=== PATIENT | male | born 1975 | race Hispanic/Latino ===

== ENCOUNTER 2016-12-25 08:29 | Inpatient (IN) | payer MEDICAID, OTHER ==
[2016-12-25 08:38] VITALS: BMI 21.7
--- NOTE | 2016-12-25 08:47 | ED PDOC ---
Arrival/HPI - General Chief Complaint: Psychiatric Evaluation Time Seen by Provider: 12/25/16 08:41 Historian: Patient - History of Present Illness Narrative History of Present Illness (Text): 12/25/16 08:38 A 41 year old male, with no significant past medical history, is brought in by EMS and presents to the emergency department for overdose. Per EMS, patient's brother found suicide note in his home from stating patient and his girlfriend, whom is also present in the ER at this time. Brother immediately called 911 afterwards. Patient states his mother made promises to help with moving out of [facility] and to give money but has not done so. Patient injected heroin in attempt of suicide. While seeing patient, he began to cry and is ashamed of what he did to himself. No PMD Symptom Onset: Sudden Symptom Course: Unchanged Associated Symptoms (Text): 12/25/16 09:26 Patient and his girlfriend made a suicide pack last night and they both overdosed on heroin. The girlfriend's brother found a suicide notes and called 911 and the 2 patients were brought to the emergency department. Patient is crying and tearful. Past Medical History - Provider Review Nursing Documentation Reviewed: Yes - Past History Past History: Non-Contributing - Infectious Disease Hx of Infectious Diseases: None - Cardiac Hx Cardiac Disorders: No - Pulmonary Hx Respiratory Disorders: No - Neurological Hx Neurological Disorder: No - HEENT Hx HEENT Disorder: No - Renal Hx Renal Disorder: No - Endocrine/Metabolic Hx Endocrine Disorders: No - Hematological/Oncological Hx Blood Disorders: No - Integumentary Hx Dermatological Disorder: No - Musculoskeletal/Rheumatological Hx Musculoskeletal Disorders: Yes Hx Arthritis: Yes Hx Herniated Disk: Yes - Gastrointestinal Hx Gastrointestinal Disorders: No - Genitourinary/Gynecological Hx Genitourinary Disorders: No Other/Comment: hydrocele - Psychiatric Hx Psychophysiologic Disorder: No Hx Depression: No Hx Emotional Abuse: No Hx Physical Abuse: No Hx Substance Use: Yes - Surgical History Other/Comment: left forearm sx - Anesthesia Hx Anesthesia: Yes Hx Anesthesia Reactions: No Hx Malignant Hyperthermia: No - Suicidal Assessment Feels Threatened In Home Enviroment: No Family/Social History - Physician Review Nursing Documentation Reviewed: Yes Family/Social History: No Known Family HX Smoking Status: Current Some Days Smoker Hx Alcohol Use: Yes Hx Substance Use: Yes Substance used: heroin use 4 months ago Hx Substance Use Treatment: No Allergies/Home Meds Allergies/Adverse Reactions: Allergies No Known Allergies Allergy (Verified 07/15/15 02:25) Home Medications: Home Meds Medication Instructions Recorded Confirmed Oxycodone Hydrochloride [Oxycontin] 30 mg PO TID 09/01/11 07/15/15 Alprazolam [Xanax] 2 mg PO DAILY 05/16/15 07/15/15 Methadone [Methadone] 10 mg PO TID 05/16/15 07/15/15 Review of Systems - Physician Review All systems were reviewed & negative as marked: Yes - Review of Systems Constitutional: Other (overdose) Respiratory: Normal Cardiovascular: Normal Gastrointestinal: Normal Psychiatric: Suicidal Ideation Physical Exam Vital Signs Temp Pulse Resp BP Pulse Ox 12/25/16 16:57 98.6 F 72 18 122/90 96 12/25/16 15:12 98.5 F 89 18 122/68 97 12/25/16 13:51 83 13 127/64 96 12/25/16 11:21 88 19 111/75 12/25/16 08:29 99.7 F H 82 14 142/60 98 Temperature: Afebrile Blood Pressure: Normal Pulse: Regular Respiratory Rate: Normal Appearance: Positive for: Well-Appearing, Non-Toxic, Comfortable Pain Distress: None Mental Status: Positive for: Lethargic (lethargic but arousable), other ( Lethargic but easily aroused) - Systems Exam Head: Present: Atraumatic, Normocephalic Pupils: Present: PERRL Extroacular Muscles: Present: EOMI Conjunctiva: Present: Normal Mouth: Present: Moist Mucous Membranes Pharnyx: No: ERYTHEMA, EXUDATE, TONSILS ENLARGED Neck: Present: Normal Range of Motion Respiratory/Chest: Present: Clear to Auscultation, Good Air Exchange, Decreased Breath Sounds. No: Respiratory Distress, Accessory Muscle Use Cardiovascular: Present: Regular Rate and Rhythm, Normal S1, S2. No: Murmurs Abdomen: Present: Normal Bowel Sounds. No: Tenderness, Distention, Peritoneal Signs, Rebound, Guarding Back: Present: Normal Inspection Upper Extremity: Present: Other (track capone) Lower Extremity: Present: Normal Inspection. No: Edema Neurological: Present: GCS=15, CN II-XII Intact, Speech Normal, Motor Func Grossly Intact Skin: Present: Warm, Dry, Normal Color. No: Rashes Psychiatric: Present: Suicidal Ideation, Intoxicated Medical Decision Making ED Course and Treatment: 12/25/16 08:42 Impression: 41 year old male with suicidal ideation and overdose. Physical exam shows track capone and patient is lethargic but arousable. Plan: -- EKG -- Chest X-ray -- Labs -- Urinalysis -- Reassess and disposition Prior Visits: Notes and results from previous visits were reviewed. Patient was last seen in the emergency department on 05/25/2016 for groin pain. Patient was discharged home. Progress Notes: 12/25/16 09:28 EKG shows normal sinus rhythm rate approximately [address] or T wave changes 12/25/2016 10:53 Chest X-ray IMPRESSION: Mild to moderate vascular congestion. Dictator: Flavio Lamas MD 12/25/16 13:[address] Lopez, whom agrees to take patient under service. Patient to be evaluated again later this afternoon. 12/25/16 18:03 Patient evaluated by PES worker, states she will re-evaluate later this evening. Patient will require admission, unclear whether it will be through screening or voluntary. 12/25/16 18:26 Care of this patient will be endorsed to the emergency department physician , pending PES evaluation. - Lab Interpretations Lab Results: 12/25/16 08:45 12/25/16 08:45 Lab Results 12/25/16 09:05: Urine Opiates Screen Positive H, Urine Methadone Screen Positive H, Ur Barbiturates Screen Negative, Ur Phencyclidine Scrn Negative, Ur Amphetamines Screen Negative, U Benzodiazepines Scrn Positive H, U Oth Cocaine Metabols Positive H, U Cannabinoids Screen Negative 12/25/16 09:05: Urine Color Yellow, Urine Appearance Clear, Urine pH 7.0, Ur Specific [place] 1.020, Urine Protein Negative, Urine Glucose (UA) Negative, Urine Ketones Negative, Urine Blood Negative, Urine Nitrate Negative, Urine Bilirubin Negative, Urine Urobilinogen 0.2, Ur Leukocyte Esterase Negative 12/25/16 08:45: Alcohol, Quantitative < 10 12/25/16 08:45: Salicylates < 1 L, Acetaminophen < 10.0 L 12/25/16 08:45: Sodium 136, Potassium 4.2, Chloride 98, Carbon Dioxide 29, Anion Gap 13, BUN 14, Creatinine 0.9, Est GFR ( Amer) > 60, Est GFR (Non- Af Amer) > 60, Random Glucose 132 H, Calcium 9.1, Total Bilirubin 0.9, AST 61 H , ALT 76 H, Alkaline Phosphatase 86, Total Protein 6.9, Albumin 4.0, Globulin 2.8, Albumin/Globulin Ratio 1.4 12/25/16 08:45: WBC 6.3 D, RBC 4.62, Hgb 12.5 L, Hct 36.6 L, MCV 79.2 L, MCH 27.1, MCHC 34.2, RDW 16.0 H, Plt Count 145, MPV 9.0, Gran % 80.7 H, Lymph % ( Auto) 10.7 L, [place] % (Auto) 8.0 H, Eos % (Auto) 0.3 L, Baso % (Auto) 0.3, Gran # 5.07, Lymph # 0.7 L, [place] # 0.5, Eos # 0.0, Baso # 0.02 I have reviewed the lab results: Yes - RAD Interpretation Radiology Orders: 12/25/16 08:42 CHEST PORTABLE [RAD] Stat - Scribe Statement The provider has reviewed the documentation as recorded by the Katja Shipley Provider Scribe Attestation: All medical record entries made by the Scribe were at my direction and personally dictated by me. I have reviewed the chart and agree that the record accurately reflects my personal performance of the history, physical exam, medical decision making, and the department course for this patient. I have also personally directed, reviewed, and agree with the discharge instructions and disposition. Disposition/Present on Arrival - Present on Arrival Any Indicators Present on Arrival: No History of DVT/PE: No History of Uncontrolled Diabetes: No Urinary Catheter: No History of Decub. Ulcer: No History Surgical Site Infection Following: None - Disposition Have Diagnosis and Disposition been Completed?: No Diagnosis: Substance abuse Disposition Time: 19:00 Condition: STABLE Forms: [employer] (Latvian)
[2016-12-25 09:04] LABS: BASO # 0.02 K/mm3 (0.0-2.0); BASO % 0.3 % (0.0-3.0); EOS % 0.3 % (1.5-5.0); GRAN # 5.07 (1.4-6.5); GRAN % 80.7 % (50.0-68.0); HEMATOCRIT 36.6 % (42.0-52.0); LYMPH # 0.7 (1.2-3.4); LYMPH % 10.7 % (22.0-35.0); MEAN CELL VOLUME 79.2 fl (80.0-105.0); MEAN CORPUSCULAR HEMOGLOBIN 27.1 pg (25.0-35.0); MEAN CORPUSCULAR HGB CONC 34.2 g/dl (31.0-37.0); MONO # 0.5 (0.1-0.6); WHITE BLOOD COUNT 6.3 10^3/ul (4.5-11.0)
[2016-12-25 09:19] LABS: ALB/GLOB RATIO 1.4 (1.1-1.8); ALKALINE PHOSPHATASE 86 U/L (38-126); ALT/SGPT 76 U/L (7-56); AST/SGOT 61 U/L (17-59); BILIRUBIN,TOTAL 0.9 mg/dL (0.2-1.3); BLOOD UREA NITROGEN 14 mg/dL (7-21); CALCIUM 9.1 mg/dL (8.4-10.5); CARBON DIOXIDE 29 mmol/L (21-33); CHLORIDE 98 mmol/L (98-107); GFR AFRICAN-AMERICAN > 60; GLUCOSE,RANDOM 132 mg/dL (70-110); POTASSIUM 4.2 mmol/L (3.6-5.0); SODIUM 136 mmol/L (132-148); TOTAL PROTEIN 6.9 g/dL (5.8-8.3)
[2016-12-25 09:26] LABS: URINE BILIRUBIN NEGATIVE (NEGATIVE); URINE BLOOD NEGATIVE (NEGATIVE); URINE GLUCOSE (UA) NEGATIVE (NEGATIVE); URINE KETONE NEGATIVE (NEGATIVE); URINE LEUKOCYTE ESTERASE NEGATIVE Leu/uL (NEGATIVE); URINE PROTEIN NEGATIVE mg/dL (<30 mg/dL); URINE UROBILINOGEN 0.2 E.U./dL (<1 E.U./dL)
[2016-12-25 09:28] LABS: URINE APPEARANCE CLEAR (CLEAR); URINE COLOR YELLOW (YELLOW)
--- NOTE | 2016-12-25 10:54 | RAD ---
HISTORY: crisis COMPARISON: No prior. FINDINGS: LUNGS: No active pulmonary disease. PLEURA: No significant pleural effusion identified, no pneumothorax apparent. CARDIOVASCULAR: Mild cardiomegaly. Moderate vascular congestion OSSEOUS STRUCTURES: No significant abnormalities. VISUALIZED UPPER ABDOMEN: Normal. OTHER FINDINGS: None. IMPRESSION: Mild to moderate vascular congestion
--- NOTE | 2016-12-25 22:11 | CARD ---
APPROVED REPORT EKG Measurement Heart [id number] MD [id number] <Conclusion> Normal sinus rhythm Normal ECG
[2016-12-26] MEDS ORDERED: Alum-Mag Hydrox-Simethicone Susp (30 mL) PO PRN (00:02)
[2016-12-26] MEDS ORDERED: Magnesium Hydroxide Susp 30 ml UD PO PRN (00:02)
[2016-12-26 01:20] VITALS: O2SAT 97
[2016-12-26 03:08] VITALS: RESP 20
--- NOTE | 2016-12-26 03:34 | PCM.BM ---
<Christiano Huber - Last Filed: 12/26/16 03:34> Treatment Plan Problems - Problems identified on initial assessmt SUICIDAL ATTEMPT Date Initiated: 12/26/16 Time Initiated: 03:00 Assessment reference: NA Status: Active DEPRESSSION Date Initiated: 12/26/16 Assessment reference: NA Status: Active SUBSTANCE ABUSE Date Initiated: 12/26/16 Assessment reference: NA Status: Active (MULTIPLE HEAVY SUBSTANCE ABUSE) Treatment assets and liabiliti Patient Assests: cooperative, educated, self-reliant, ADL independent, physically healthy, negotiates basic needs, cognitively intact, good interpersonal skills Patient Liabilities: live alone, financial problems, poor support system, relationship conflicts, substance abuse - Milieu Protocol Maintain good personal hygiene: daily Encourage regular showers, every shift Remind patient to perform daily oral care, every shift Assist patient to perform ADL's Maintain personal safety: every shift Educate patient to report safety concerns to staff, every shift Monitor environment for contraband/sharps Medication safety: Monitor for expected outcome, potential side effects: every shift, Assess barriers to learning: every shift, Assess readiness for medication education: every shift Family Contact Family involvement: Patient does not wish Family/SO involvement Discharge/Continuing Care - Education Needs Education Needs: Patient Medication, Patient Diagnosis/Disease Process, Patient Coping Skills, Patient Placement options, Patient Community resources, Patient Activities of Daily Living, Patient Health Practices/Safety - Discharge Discharge Criteria: Tolerates medication w/o severe side effects, Free of Suicidal thoughts, Free of Homicidal thoughts, Free of agitation, Normal sleep pattern <Jessica Rodriguez - Last Filed: 12/26/16 16:13> - Diagnosis (1) Substance induced mood disorder Status: Acute Interventions: 12/26/16 16:13 Psychoeducation Psychopharmacology/adjustment of medications as needed/ monitoring possible side effects Evaluate pt on daily basis Compliance with medications and follow up appointments Suicide and homicide risk assessment and prevention Relapse prevention Reduction of symptoms Improve functional status Family involvement As outpatient: cognitive behavioral therapy (2) Polysubstance dependence including opioid type drug, episodic abuse Status: Acute Interventions: 12/26/16 16:13 Monitoring withdrawal symptoms Medical detoxification Pharmacotherapy for alcohol/benzos/opioid dependence Maintaining sobriety Relapse prevention Possible rehabilitation Motivational interviewing 12-step programs: AA meetings possible rehab 12/26/16 16:14 Family Contact - Outside Agency [facility] Care involvment: Not involved <Roxie James - Last Filed: 12/26/16 16:23>
[2016-12-26 08:11] LABS: CHOLESTEROL 155 mg/dL (130-200); GLUCOSE,FASTING 94 mg/dL (65-110)
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
[2016-12-27] MEDS: Multivitamin With Minerals Tab PO SCH (08:03)
[2016-12-27 08:10] LABS: BASO # 0.03 K/mm3 (0.0-2.0); BASO % 0.5 % (0.0-3.0); EOS % 0.3 % (1.5-5.0); GRAN # 4.03 (1.4-6.5); GRAN % 64.8 % (50.0-68.0); LYMPH # 1.7 (1.2-3.4); LYMPH % 26.5 % (22.0-35.0); MEAN CELL VOLUME 78.1 fl (80.0-105.0); MEAN CORPUSCULAR HEMOGLOBIN 27.9 pg (25.0-35.0); MEAN CORPUSCULAR HGB CONC 35.7 g/dl (31.0-37.0); MEAN PLATELET VOLUME 9.1 fl (7.0-11.0); MONO # 0.5 (0.1-0.6); MONO % 7.9 % (1.0-6.0); RED CELL DISTRIBUTION WIDTH 15.8 % (11.5-14.5); WHITE BLOOD COUNT 6.2 10^3/ul (4.5-11.0)
--- NOTE | 2016-12-27 08:18 | CP.PCM.CON ---
Addendum entered and electronically signed by Hay Cam DO 12/27/16 13:11: Correction: Patient admits to nonbloody diarrhea which has improved since onset. Addendum entered and electronically signed by Hay Cam DO 12/27/16 13:05: Will also follow up on hepatitis panel and HIV screening results Original Note: <Hay Cam - Last Filed: 12/27/16 12:52> History of Present Illness - History of Present Illness History of Present Illness: Subjective: Patient is a 41 year old male with a past medical history of polysubstance abuse and dependence, self reported h/o ADHD, and generalized anxiety disorder who was admitted to the psych unit from home via EMS for evaluation and treatment of suicidal ideation and attempt. As per the psych note the patient stated that he took xanax, IV heroin, methadone, and cocaine.The medical team was consulted for management for the patient's medical conditions. Patient seen and examined at bedside. Resting comfortably in bed. No acute overnight events. Admits to feeling restless at night leading to a decreased amount of sleep. Admits to 6 bouts of nonbloody loose bowel movements. Denies fever, chills, chest pain, shortness of breath, abdominal pain, nausea, vomiting, diarrhea, constipation, and urinary symptoms. PMHx:polysubstance abuse and dependence, h/o abscess of his left forearm, self reported h/o ADHD, and ALEAH PSHx: left upper extremity skin graft, right wrist carpal tunnel release Allergies: NKDA Social Hx: social ETOH use, smokes 1/2 ppd for approximately 10 years, active IV heroin user, recreational cocaine use Family Hx- father- diabetes PMD: Dr. Johansen Insurance: Medicaid Pharmacy- quick check in [place] Physical Examination: General: NAD Head: atraumatic normocephalic Eyes: EOMI, non icteric Neck: supple Heart: +s1 +s2, RRR, no murmurs, no gallops Lungs: CTA bilaterally, no rales, no rhonchi, no wheezing Abdomen: soft, NTTP, no organomegaly, + BS x 4 Neuro: AAO x 3, CN II- XII intact, muscle strenght 5/5 throughout Extremities: no clubbing, cyanosis, edema Skin: three nontender erythematous lesions in the right upper extremity antecubital area 2/2 IV insertion Assessment and Plan: Transaminits - likely secondary to drug use - no abdominal pain, patient is tolerating diet - monitor closely via daily CMP Diarrhea - likely secondary to withdrawl from heroin - encourage supportive care- adequate water intake - will monitor for signs/symptoms of dehydration Suicidal Ideation/Attempt, Psychiatry r/o MDD, R/o substance induced mood disorder - management as per psych Polysubstance/ Tobacco Abuse and Dependence - encouraged cessation of illiicut drug use and tobacco abuse - extensive education on danger of using illicit products and tobaccou use provided Prophylaxis - GI prophylais - ambulating without overt difficultly, no need for SCDs or subq heparin Patient seen, case discussed with, and plan approved by attending physician, Dr. Mosquera. Past Patient History - Infectious Disease Hx of Infectious Diseases: None - Past Social History Smoking Status: Current Some Days Smoker - CARDIAC Hx Cardiac Disorders: No - PULMONARY Hx Respiratory Disorders: No - NEUROLOGICAL Hx Neurological Disorder: No - HEENT Hx HEENT Problems: No - RENAL Hx Chronic Kidney Disease: No - ENDOCRINE/METABOLIC Hx Endocrine Disorders: No - HEMATOLOGICAL/ONCOLOGICAL Hx Blood Disorders: No - INTEGUMENTARY Hx Dermatological Problems: No - MUSCULOSKELETAL/RHEUMATOLOGICAL Hx Musculoskeletal Disorders: Yes Hx Arthritis: Yes Hx Herniated Disk: Yes - GASTROINTESTINAL Hx Gastrointestinal Disorders: No - GENITOURINARY/GYNECOLOGICAL Hx Genitourinary Disorders: No Other/Comment: hydrocele - PSYCHIATRIC Hx Psychophysiologic Disorder: No Hx Depression: No Hx Emotional Abuse: No Hx Physical Abuse: No Hx Substance Use: Yes - SURGICAL HISTORY Hx Surgeries: Yes Other/Comment: left forearm sx sec to staph infection - ANESTHESIA Hx Anesthesia: Yes Hx Anesthesia Reactions: No Hx Malignant Hyperthermia: No Meds Allergies/Adverse Reactions: Allergies Allergy/AdvReac Type Severity Reaction Status Date / Time No Known Allergies Allergy Verified 12/26/16 02:22 - Medications Medications: Current Medications Acetaminophen (Tylenol 325mg Tab) 650 mg PO Q4H PRN PRN Reason: Pain, Mild (1-3) Al Hydrox/Mg Hydrox/Simethicone (Maalox Plus 30 Ml) 30 ml PO DAILY PRN PRN Reason: Upset Stomach Clonazepam (Klonopin) 2 mg PO TID [facility] PRN Reason: Protocol Last Admin: 12/26/16 17:51 Dose: 2 mg Clonidine HCl (Catapres) 0.1 mg PO BID PRN PRN Reason: opioid withdrawals Gabapentin (Neurontin) 300 mg PO TID [facility] PRN Reason: Protocol Last Admin: 12/26/16 17:51 Dose: 300 mg Loperamide HCl (Imodium) 2 mg PO QID PRN PRN Reason: take after each lose BM Lorazepam (Ativan) 2 mg IM Q6H PRN; Protocol PRN Reason: Agitation Lorazepam (Ativan) 2 mg PO Q6H PRN; Protocol PRN Reason: Anxiety Magnesium Hydroxide (Milk Of Magnesia) 30 ml PO DAILY PRN PRN Reason: Constipation Mirtazapine (Remeron) 15 mg PO HS [facility] Last Admin: 12/26/16 21:32 Dose: Not Given Multivitamins/Minerals (Therapeutic-M Tab) 1 tab PO 0800 [facility] Nicotine (Nicoderm Cq) 1 patch TD DAILY [facility] Last Admin: 12/26/16 17:51 Dose: 1 patch Ondansetron HCl (Zofran Odt) 4 mg PO Q8H PRN PRN Reason: Nausea/Vomiting Tramadol HCl (Ultram) 50 mg PO TID [facility] Last Admin: 12/26/16 17:50 Dose: 50 mg Ziprasidone (Geodon Inj) 20 mg IM Q6H PRN; Protocol PRN Reason: Agitation Results - Vital Signs Recent Vital Signs: Last Vital Signs Temp 97.8 F 12/27/16 06:40 Pulse 72 12/27/16 06:40 Resp 20 12/27/16 06:40 BP 108/68 12/27/16 06:40 Pulse Ox 97 12/26/16 01:27 - Labs Result Diagrams: 12/27/16 07:40 12/27/16 07:40 Labs: Laboratory Results - last 24 hr 12/26/16 12/26/16 12/26/16 07:00 07:00 07:00 Fasting Glucose 94 Triglycerides 152 Cholesterol 155 LDL Cholesterol Direct 80 HDL Cholesterol 33 TSH 3rd Generation 2.6 RPR Nonreactive <Lele Mosquera - Last Filed: 12/27/16 14:47> Meds - Medications Medications: Current Medications Acetaminophen (Tylenol 325mg Tab) 650 mg PO Q4H PRN PRN Reason: Pain, Mild (1-3) Al Hydrox/Mg Hydrox/Simethicone (Maalox Plus 30 Ml) 30 ml PO DAILY PRN PRN Reason: Upset Stomach Clonazepam (Klonopin) 2 mg PO TID [facility] PRN Reason: Protocol Last Admin: 12/27/16 12:25 Dose: 2 mg Clonidine HCl (Catapres) 0.1 mg PO BID PRN PRN Reason: opioid withdrawals Last Admin: 12/27/16 11:30 Dose: 0.1 mg Gabapentin (Neurontin) 300 mg PO TID [facility] PRN Reason: Protocol Last Admin: 12/27/16 12:25 Dose: 300 mg Loperamide HCl (Imodium) 2 mg PO QID PRN PRN Reason: take after each lose BM Lorazepam (Ativan) 2 mg IM Q6H PRN; Protocol PRN Reason: Agitation Lorazepam (Ativan) 2 mg PO Q6H PRN; Protocol PRN Reason: Anxiety Magnesium Hydroxide (Milk Of Magnesia) 30 ml PO DAILY PRN PRN Reason: Constipation Mirtazapine (Remeron) 15 mg PO HS [facility] Last Admin: 12/26/16 21:32 Dose: Not Given Multivitamins/Minerals (Therapeutic-M Tab) 1 tab PO 0800 [facility] Last Admin: 12/27/16 08:03 Dose: 1 tab Nicotine (Nicoderm Cq) 1 patch TD DAILY [facility] Last Admin: 12/27/16 08:02 Dose: 1 patch Ondansetron HCl (Zofran Odt) 4 mg PO Q8H PRN PRN Reason: Nausea/Vomiting Pantoprazole Sodium (Protonix Ec Tab) 40 mg PO DAILY [facility] Last Admin: 12/27/16 10:27 Dose: 40 mg Tramadol HCl (Ultram) 50 mg PO TID [facility] Last Admin: 12/27/16 12:24 Dose: 50 mg Ziprasidone (Geodon Inj) 20 mg IM Q6H PRN; Protocol PRN Reason: Agitation Results - Vital Signs Recent Vital Signs: Last Vital Signs Temp 97.8 F 12/27/16 06:40 Pulse 90 12/27/16 11:30 Resp 20 12/27/16 06:40 BP 135/84 12/27/16 11:30 Pulse Ox 97 12/26/16 01:27 - Labs Result Diagrams: 12/27/16 07:40 12/27/16 07:40 Labs: Laboratory Results - last 24 hr 12/26/16 12/27/16 12/27/16 07:00 07:40 07:40 WBC 6.2 RBC 5.38 Hgb 15.0 D Hct 42.0 MCV 78.1 L MCH 27.9 MCHC 35.7 RDW 15.8 H Plt Count 159 MPV 9.1 Gran % 64.8 Lymph % (Auto) 26.5 [place] % (Auto) 7.9 H Eos % (Auto) 0.3 L Baso % (Auto) 0.5 Gran # 4.03 Lymph # 1.7 [place] # 0.5 Eos # 0.0 Baso # 0.03 Sodium 142 Potassium 3.9 Chloride 102 Carbon Dioxide 28 Anion Gap 16 BUN 14 Creatinine 0.8 Est GFR ( Amer) > 60 Est GFR (Non-Af Amer) > 60 Random Glucose 126 H Calcium 9.6 Total Bilirubin 1.8 H AST 94 H D ALT 84 H Alkaline Phosphatase 105 Total Protein 8.0 Albumin 4.5 Globulin 3.4 Albumin/Globulin Ratio 1.3 RPR Nonreactive Attending/Attestation - Attestation I have personally seen and examined this patient.: Yes I have fully participated in the care of the patient.: Yes I have reviewed all pertinent clinical information: Yes Notes (Text): 12/27/16 14:41 attending note; Patient seen and examined with resident in Psych floor. Patient is a 41-year-old male with a past medical history of IV heroine abuse is admitted with multiple drug overdose/suicidal ideation. Urine drug screen is positive for opiates, benzos, methadone and cocaine. Diarrhea; secondary to opiate withdrawal. Currently on clonidine and Imodium. Might need methadone. History of IV drug abuse; needle capone on the right antecubital area. No abscess noted. Monitor closely. Patient is strongly advised to stop drug abuse. Complications of IV drug abuse including infections, bacteremia, endocarditis, sepsis and explained in detail. HIV and hepatitis profile ordered. active smoking; on NicoDerm patch. Smoking cessation is strongly advised. Elevated LFTs; monitor closely. Follow-up hepatitis profile. Patient is currently alert and awake. Agreed to participate in medical treatment. upon discharge patient will follow up with PMD . patient is stable. Please reconsult as needed.
[2016-12-27 08:21] LABS: ALB/GLOB RATIO 1.3 (1.1-1.8); ALKALINE PHOSPHATASE 105 U/L (38-126); ALT/SGPT 84 U/L (7-56); AST/SGOT 94 U/L (17-59); BILIRUBIN,TOTAL 1.8 mg/dL (0.2-1.3); BLOOD UREA NITROGEN 14 mg/dL (7-21); CALCIUM 9.6 mg/dL (8.4-10.5); CARBON DIOXIDE 28 mmol/L (21-33); CHLORIDE 102 mmol/L (98-107); GFR AFRICAN-AMERICAN > 60; GLUCOSE,RANDOM 126 mg/dL (70-110); POTASSIUM 3.9 mmol/L (3.6-5.0); SODIUM 142 mmol/L (132-148)
[2016-12-27] MEDS: Pantoprazole 40 mg EC Tab PO SCH (10:27)
--- NOTE | 2016-12-27 15:10 | PCM.PYCHPN ---
Psychiatric Progress Note - Psychiatric Progress Note Patient seen today, length of contact: 30min Patient Chief Complaint: "I want to be discharged..." Medical Problems: s/p suicidal attempt pt od on 50 bags of heroin +xanax+cocaine+methadone Diagnostic Results: 12/27/16 07:40 12/27/16 07:40 Lab Results 12/27/16 07:40: Sodium 142, Potassium 3.9, Chloride 102, Carbon Dioxide 28, Anion Gap 16, BUN 14, Creatinine 0.8, Est GFR ( Amer) > 60, Est GFR (Non- Af Amer) > 60, Random Glucose 126 H, Calcium 9.6, Total Bilirubin 1.8 H, AST 94 H D, ALT 84 H, Alkaline Phosphatase 105, Total Protein 8.0, Albumin 4.5, Globulin 3.4, Albumin/Globulin Ratio 1.3 12/27/16 07:40: WBC 6.2, RBC 5.38, Hgb 15.0 D, Hct 42.0, MCV 78.1 L, MCH 27.9, MCHC 35.7, RDW 15.8 H, Plt Count 159, MPV 9.1, Gran % 64.8, Lymph % (Auto) 26.5 , [place] % (Auto) 7.9 H, Eos % (Auto) 0.3 L, Baso % (Auto) 0.5, Gran # 4.03, Lymph # 1.7, [place] # 0.5, Eos # 0.0, Baso # 0.03 12/26/16 07:00: RPR Nonreactive 12/26/16 07:00: TSH 3rd Generation 2.6 12/26/16 07:00: Fasting Glucose 94, Triglycerides 152, Cholesterol 155, LDL Cholesterol Direct 80, HDL Cholesterol 33 12/25/16 09:05: Urine Opiates Screen Positive H, Urine Methadone Screen Positive H, Ur Barbiturates Screen Negative, Ur Phencyclidine Scrn Negative, Ur Amphetamines Screen Negative, U Benzodiazepines Scrn Positive H, U Oth Cocaine Metabols Positive H, U Cannabinoids Screen Negative 12/25/16 09:05: Urine Color Yellow, Urine Appearance Clear, Urine pH 7.0, Ur Specific [place] 1.020, Urine Protein Negative, Urine Glucose (UA) Negative, Urine Ketones Negative, Urine Blood Negative, Urine Nitrate Negative, Urine Bilirubin Negative, Urine Urobilinogen 0.2, Ur Leukocyte Esterase Negative 12/25/16 08:45: Alcohol, Quantitative < 10 12/25/16 08:45: Salicylates < 1 L, Acetaminophen < 10.0 L 12/25/16 08:45: Sodium 136, Potassium 4.2, Chloride 98, Carbon Dioxide 29, Anion Gap 13, BUN 14, Creatinine 0.9, Est GFR ( Amer) > 60, Est GFR (Non- Af Amer) > 60, Random Glucose 132 H, Calcium 9.1, Total Bilirubin 0.9, AST 61 H , ALT 76 H, Alkaline Phosphatase 86, Total Protein 6.9, Albumin 4.0, Globulin 2.8, Albumin/Globulin Ratio 1.4 12/25/16 08:45: WBC 6.3 D, RBC 4.62, Hgb 12.5 L, Hct 36.6 L, MCV 79.2 L, MCH 27.1, MCHC 34.2, RDW 16.0 H, Plt Count 145, MPV 9.0, Gran % 80.7 H, Lymph % ( Auto) 10.7 L, [place] % (Auto) 8.0 H, Eos % (Auto) 0.3 L, Baso % (Auto) 0.3, Gran # 5.07, Lymph # 0.7 L, [place] # 0.5, Eos # 0.0, Baso # 0.02 Vital Signs Temp Pulse Resp BP Pulse Ox 12/27/16 11:30 90 135/84 12/27/16 06:40 97.8 F 72 20 108/68 12/26/16 16:00 79 105/66 12/26/16 02:35 99.1 F 86 20 106/59 L 12/26/16 01:27 81 17 105/60 97 12/26/16 01:20 81 18 105/60 97 12/25/16 23:02 100 H 20 104/61 93 L 12/25/16 20:23 86 20 125/72 97 12/25/16 18:39 61 18 132/82 96 12/25/16 16:57 98.6 F 72 18 122/90 96 12/25/16 15:12 98.5 F 89 18 122/68 97 12/25/16 13:51 83 13 127/64 96 12/25/16 11:21 88 19 111/75 12/25/16 08:29 99.7 F H 82 14 142/60 98 DSM 5 Symptoms Update: shortly patient is a 41 year old Male with self reported h/o ADHD and ALEAH, h/o polysubstance abuse and dependence, pt denied h/o being admitted to the psychiatric inpatient unit, denied previous suicidal attempts, currently lives with his girlfriend of 11years in [place], was brought to the [facility] s/p suicidal pact with his girlfriend, pt and his girlfriend were found unconscious in apartment with good by letters (pt's girlfriend wrote them), pt was under care of (local psychiatrist), considering the severeness of the pt's suicidal attempt, pt cannot be maintained as outpatient setting. Pt overdosed on 62mg of xanax, 50 bags of IV heroin, methadone, cocaine. pt was seen together wit GINNY Faustin in her office. pt presented to have some withdrawals from the opioids, pt said he has diarrhea, nausea, was offered Zofran. pt said that he feels better, denied thoughts of harming self or others , pt is unreliable historian. 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 as per sister "he will find any excuse to sign himself out", as per sister she will contact pt's girlfriend family and ask them to take pt's belongings and get back to the . pt still present to be depressed, flat affect, c/o opioid withdrawals, but VS are WNL, pt was advised to take meds as needed. Review of Systems: see Medical consult. 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 Impression: r/o MDD r/o substance induced mood disorder polysubstance abuse and dependence Treatment plan: pt submitted 48hr notice, pt needs screening from [facility], family involved, if pt will not rescind it, will call [facility] at am Milieu/structure/supportive therapy Medical consult appreciated, see medical team note for more detailed info consultation for discharge plan and social issues Med management PRN meds (Tramadol, immodium, clonidine, zofran) neurontin for cravings 300mg tid klonopin 2mg po tid for benzos withdrawals with plan to taper it off remeron 15mg po hs for depression and insomnia family involvement, pt gave permission to speak to his family and disclosed info Follow up on labs Will monitor closely evaluation for d/c planning, possible rehab Pt was educated about risk/benefits and alternatives of medications, coping strategies (safety plan, suicide prevention), relapse prevention, importance of follow up with psychiatrist and therapist, stay away from drugs/alcohol/smoking Medication Change: Yes Medical Record Reviewed: Yes Consults ordered or reviewed: medical consult appreciated Mental Status Examination - Homicidal Ideation Homicidal Ideation: No Goal/Treatment Plan - Goal/Treatment Plan Need for Continued Stay: Remain at risks for inpatient hospitalization, Severe depression anxiety, Discharge may exacerbated symptoms, Severe functional impairment Estimated Date of D/C: 01/03/17
[2016-12-28] MEDS: Pantoprazole 40 mg EC Tab PO SCH (08:24)
[2016-12-28] MEDS: Multivitamin With Minerals Tab PO SCH (08:24)
--- NOTE | 2016-12-28 12:15 | CP.PCM.PN ---
<Hay Cam - Last Filed: 12/28/16 12:03> Subjective - Date & Time of Evaluation Date of Evaluation: 12/28/16 Time of Evaluation: 07:45 - Subjective Subjective: Subjective: Patient seen and examined at bedside. Resting comfortably in bed. No acute overnight events. Patient states his diarrhea has improved compared to baseline. Tolerating diet. Offers no new complaints at this time. Denies fever, chills, chest pain, shortness of breath, abdominal pain, nausea, vomiting, constipation, and urinary symptoms. Physical Examination: General: NAD Head: atraumatic normocephalic Eyes: EOMI, non icteric Neck: supple Heart: +s1 +s2, RRR, no murmurs, no gallops Lungs: CTA bilaterally, no rales, no rhonchi, no wheezing Abdomen: soft, NTTP, no organomegaly, + BS x 4 Neuro: AAO x 3, CN II- XII intact, muscle strenght 5/5 throughout Extremities: no clubbing, cyanosis, edema Skin: three nontender erythematous lesions in the right upper extremity antecubital area 2/2 IV insertion- no swelling or warmth or tenderness on palpation Assessment and Plan: Transaminits - likely secondary to drug use - no abdominal pain, patient is tolerating diet - hepatitis panel negative - HIV nonreactive Diarrhea - likely secondary to withdrawl from heroin, no need for low dose methadone as withdrawal symptoms are improving - continue to encourage supportive care- adequate water intake Suicidal Ideation/Attempt, Psychiatry r/o MDD, R/o substance induced mood disorder - management as per psych Polysubstance/ Tobacco Abuse and Dependence - again encouraged cessation of illiicut drug use and tobacco abuse - extensive education on danger of using illicit products and tobaccou use provided Prophylaxis - continue with pantoprazole - ambulating without overt difficultly, no need for SCDs or subq heparin Dispo: - patient encouraged to follow up with PMD 3-5 days after discharge Medicine team will sign off at this time. Please reconsult if needed. Thank you for the opportunity to participate in the care of this patient. Patient seen, case discussed with, and plan approved by attending physician, Dr. Mosquera. Objective - Vital Signs/Intake and Output Vital Signs (last 24 hours): Temp Pulse Resp BP Pulse Ox 97.7 F 78 20 106/69 97 12/28/16 06:42 12/28/16 06:42 12/28/16 06:42 12/28/16 06:42 12/26/16 01:27 - Medications Medications: Current Medications Acetaminophen (Tylenol 325mg Tab) 650 mg PO Q4H PRN PRN Reason: Pain, Mild (1-3) Al Hydrox/Mg Hydrox/Simethicone (Maalox Plus 30 Ml) 30 ml PO DAILY PRN PRN Reason: Upset Stomach Clonazepam (Klonopin) 2 mg PO TID [facility] PRN Reason: Protocol Last Admin: 12/28/16 08:24 Dose: 2 mg Clonidine HCl (Catapres) 0.1 mg PO BID PRN PRN Reason: opioid withdrawals Last Admin: 12/27/16 11:30 Dose: 0.1 mg Gabapentin (Neurontin) 300 mg PO TID [facility] PRN Reason: Protocol Last Admin: 12/28/16 08:24 Dose: 300 mg Loperamide HCl (Imodium) 2 mg PO QID PRN PRN Reason: take after each lose BM Lorazepam (Ativan) 2 mg IM Q6H PRN; Protocol PRN Reason: Agitation Lorazepam (Ativan) 2 mg PO Q6H PRN; Protocol PRN Reason: Anxiety Last Admin: 12/27/16 21:16 Dose: 2 mg Magnesium Hydroxide (Milk Of Magnesia) 30 ml PO DAILY PRN PRN Reason: Constipation Mirtazapine (Remeron) 15 mg PO HS [facility] Last Admin: 12/27/16 21:16 Dose: 15 mg Multivitamins/Minerals (Therapeutic-M Tab) 1 tab PO 0800 [facility] Last Admin: 12/28/16 08:24 Dose: 1 tab Nicotine (Nicoderm Cq) 1 patch TD DAILY [facility] Last Admin: 12/28/16 08:24 Dose: 1 patch Ondansetron HCl (Zofran Odt) 4 mg PO Q8H PRN PRN Reason: Nausea/Vomiting Pantoprazole Sodium (Protonix Ec Tab) 40 mg PO DAILY [facility] Last Admin: 12/28/16 08:24 Dose: 40 mg Tramadol HCl (Ultram) 50 mg PO TID [facility] Last Admin: 12/28/16 08:25 Dose: 50 mg Ziprasidone (Geodon Inj) 20 mg IM Q6H PRN; Protocol PRN Reason: Agitation - Labs Labs: 12/27/16 07:40 12/27/16 07:40 <Lele Mosquera - Last Filed: 12/28/16 14:04> Objective - Vital Signs/Intake and Output Vital Signs (last 24 hours): Temp Pulse Resp BP Pulse Ox 97.7 F 78 20 106/69 97 12/28/16 06:42 12/28/16 06:42 12/28/16 06:42 12/28/16 06:42 12/26/16 01:27 - Medications Medications: Current Medications Acetaminophen (Tylenol 325mg Tab) 650 mg PO Q4H PRN PRN Reason: Pain, Mild (1-3) Al Hydrox/Mg Hydrox/Simethicone (Maalox Plus 30 Ml) 30 ml PO DAILY PRN PRN Reason: Upset Stomach Clonazepam (Klonopin) 2 mg PO TID [facility] PRN Reason: Protocol Last Admin: 12/28/16 12:47 Dose: 2 mg Clonidine HCl (Catapres) 0.1 mg PO BID PRN PRN Reason: opioid withdrawals Last Admin: 12/27/16 11:30 Dose: 0.1 mg Gabapentin (Neurontin) 300 mg PO TID [facility] PRN Reason: Protocol Last Admin: 12/28/16 12:46 Dose: 300 mg Loperamide HCl (Imodium) 2 mg PO QID PRN PRN Reason: take after each lose BM Lorazepam (Ativan) 2 mg IM Q6H PRN; Protocol PRN Reason: Agitation Lorazepam (Ativan) 2 mg PO Q6H PRN; Protocol PRN Reason: Anxiety Last Admin: 12/27/16 21:16 Dose: 2 mg Magnesium Hydroxide (Milk Of Magnesia) 30 ml PO DAILY PRN PRN Reason: Constipation Mirtazapine (Remeron) 15 mg PO HS [facility] Last Admin: 12/27/16 21:16 Dose: 15 mg Multivitamins/Minerals (Therapeutic-M Tab) 1 tab PO 0800 [facility] Last Admin: 12/28/16 08:24 Dose: 1 tab Nicotine (Nicoderm Cq) 1 patch TD DAILY [facility] Last Admin: 12/28/16 08:24 Dose: 1 patch Ondansetron HCl (Zofran Odt) 4 mg PO Q8H PRN PRN Reason: Nausea/Vomiting Pantoprazole Sodium (Protonix Ec Tab) 40 mg PO DAILY [facility] Last Admin: 12/28/16 08:24 Dose: 40 mg Tramadol HCl (Ultram) 50 mg PO TID [facility] Last Admin: 12/28/16 12:46 Dose: 50 mg Ziprasidone (Geodon Inj) 20 mg IM Q6H PRN; Protocol PRN Reason: Agitation - Labs Labs: 12/27/16 07:40 12/27/16 07:40 Attending/Attestation - Attestation I have personally seen and examined this patient.: Yes I have fully participated in the care of the patient.: Yes I have reviewed all pertinent clinical information, including history, physical exam and plan: Yes Notes (Text): 12/28/16 14:03 attending note; Patient seen and examined with resident in Psych floor. Patient is a 41-year-old male with a past medical history of IV heroine abuse is admitted with multiple drug overdose/suicidal ideation. Urine drug screen is positive for opiates, benzos, methadone and cocaine. Diarrhea; secondary to opiate withdrawal. resolved. Currently on clonidine and Imodium. History of IV drug abuse; needle capone on the right antecubital area is healing. No abscess noted. Monitor closely. Patient is strongly advised to stop drug abuse. HIV and hepatitis profile negative. active smoking; on NicoDerm patch. Smoking cessation is strongly advised. renal social worker evaluation appreciated. upon discharge patient will follow up with PMD . patient is stable. Please reconsult as needed.
--- NOTE | 2016-12-28 19:20 | PN ---
DATE: Covering for Dr. Rodriguez. The patient was interviewed in treatment team and his chart was reviewed. 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 He reported that he was born and raised in [place], [place] and that his health is good. He indicated that he presently had tried to commit suicide with his fiance (whom he has been with for seven years) due to financial stressors. He decided that he (predominantly his fiance who was also in the hospital on the medical floor at this time) had decided to commit suicide because of their ongoing financial duress and he did not want to be without her. They both overdosed on heroin. He denied any prior suicide attempts. He did indicate he had been using heroin for about 6 to 7 years (12-20 bags daily) and denied other drugs. He subsequently; however, admitted that he initially started marijuana while in college at [employer] in [place] where he completed one year and then left to take care of his family, with both of his parents having been involved in drug use and sale leading to their mutual incarceration (father for five years and mother for four). The patient did have one brother who fatally overdosed on heroin. He has a sister who resides in [place]. The patient reports that he is under the care of a local psychiatrist, Dr. Yosi Arrington. He denied feeling suicidal or depressed at this moment and denied any hallucinations. He was insisting on leaving. He presently is being maintained on clonidine for opiate withdrawal p.r.n., Klonopin 2 mg t.i.d., Neurontin 300 mg t.i.d., Remeron. The patient will do go screening regarding possible involuntary commitment. Ronnie Peacock MD/ PhD
[2016-12-29 06:53] VITALS: TEMP 97.8
[2016-12-29] MEDS: Multivitamin With Minerals Tab PO SCH (07:57)
[2016-12-29] MEDS: Pantoprazole 40 mg EC Tab PO SCH (07:58)
--- NOTE | 2016-12-29 08:46 | PCM.PYCHPN ---
Psychiatric Progress Note - Psychiatric Progress Note Patient seen today, length of contact: 25 min Problems Identified/Issues Discussed: I reviewed assessment and recent notes which indicate that screener did not believe that patient met criteria for admission. Review of admission notes indicate that patient has actual intent to kill himself in a pact with girlfriend who is also hospitalized. This was confirmed by interview with patient at bedside. The couple have numerous stressors and patient indicates that he now feels that behavior prior to admission was "stupid and idiotic". Feels he is improving and reports hopefulness. He is calm during my interaction with him. However he can later be heard loudly swearing about the screeners evaluation at 1 am and my visit with him. Patient was cursing and calling us names when speaking with his roommate. Current hospitalization and my interaction with patient has been too brief and inconsistent to ensure patient is stable for discharge. Based on these findings , this provider respectfully requested a second screening opinion. Diagnostic Results: r/o MDD r/o substance induced mood disorder polysubstance abuse and dependence Medication Change: No Medical Record Reviewed: Yes Mental Status Examination - Cognitive Function Attention: WNL Concentration: Poor - Mood Mood: Other (better) - Affect Affect: Constricted, Other (labile, agitated) - Speech Speech: Appropriate - Formal Thought Process Formal Thought Process: No Impairment - Suicidal Ideation Suicidal Ideation: No - Homicidal Ideation Homicidal Ideation: No Goal/Treatment Plan - Goal/Treatment Plan Need for Continued Stay: Remain at risks for inpatient hospitalization, Severe depression anxiety, Discharge may exacerbated symptoms, Severe functional impairment Progress Toward Problem(s) and Goals/Treatment Plan: * c/w current tx and plan * Current hospitalization and my interaction with patient has been too brief and inconsistent to ensure patient is stable for discharge. Based on these findings, this provider respectfully requested a second screening opinion. * No new weekend labs thus far * Vitals reviewed and noted below: Selected Entries 12/28/16 12/28/16 06:42 16:02 Temperature 97.7 F Pulse Rate 78 81 Respiratory 20 Rate Blood Pressure 106/69 106/66 Estimated Date of D/C: 01/03/17
[2016-12-29 15:45] VITALS: BP 111/69; PULSE 81
--- NOTE | 2016-12-30 05:11 | PCM.PYCHDC ---
Mental Status Examination - Mental Status Examination Orientation: Person, Place, Situation Memory: Intact Mood: Depressed Affect: Other (labile, irritable) Attention: WNL Concentration: WNL Association: WNL Fund of Knowledge: WNL Formal Thought Process: No Impairment Description of patient's judgement and insight: Poor insight and judgment Discharge Summary - Discharge Note Reason for Hospitalization: Patient is a 41 year old Male with self reported h/o ADHD and ALEAH, h/ o polysubstance abuse and dependence, pt denied h/o being admitted to the psychiatric inpatient unit, denied previous suicidal attempts, currently lives with his girlfriend of 11years in [place], was brought to the [facility] s/p suicidal pact with his girlfriend, pt and his girlfriend were found unconscious in apartment with good by letters (pt's girlfriend wrote them), pt was under care of (local psychiatrist), considering the severeness of the pt's suicidal attempt, pt cannot be maintained as outpatient setting. Pt overdosed on 62mg of xanax, 50 bags of IV heroin, methadone, cocaine. pt was seen together wit GINNY Faustin in her office. pt presented to have some withdrawals from the opioids, pt said he has diarrhea, nausea, was offered Zofran. pt said that he feels better, denied thoughts of harming self or others , pt is unreliable historian. 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 as per sister "he will find any excuse to sign himself out", as per sister she will contact pt's girlfriend family and ask them to take pt's belongings and get back to the . pt still present to be depressed, flat affect, c/o opioid withdrawals, but VS are WNL, pt was advised to take meds as needed. Review of Systems: see Medical consult. 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 Impression: r/o MDD r/o substance induced mood disorder polysubstance abuse and dependence Laboratory Data: Laboratory Tests 12/25/16 12/25/16 12/25/16 08:45 08:45 08:45 WBC 6.3 D RBC 4.62 Hgb 12.5 L Hct 36.6 L MCV 79.2 L MCH 27.1 MCHC 34.2 RDW 16.0 H Plt Count 145 MPV 9.0 Gran % 80.7 H Lymph % (Auto) 10.7 L Carter % (Auto) 8.0 H Eos % (Auto) 0.3 L Baso % (Auto) 0.3 Gran # 5.07 Lymph # 0.7 L Carter # 0.5 Eos # 0.0 Baso # 0.02 Sodium 136 Potassium 4.2 Chloride 98 Carbon Dioxide 29 Anion Gap 13 BUN 14 Creatinine 0.9 Est GFR ( Amer) > 60 Est GFR (Non-Af Amer) > 60 Random Glucose 132 H Fasting Glucose Calcium 9.1 Total Bilirubin 0.9 AST 61 H ALT 76 H Alkaline Phosphatase 86 Total Protein 6.9 Albumin 4.0 Globulin 2.8 Albumin/Globulin Ratio 1.4 Triglycerides Cholesterol LDL Cholesterol Direct HDL Cholesterol TSH 3rd Generation Urine Color Urine Appearance Urine pH Ur Specific [place] Urine Protein Urine Glucose (UA) Urine Ketones Urine Blood Urine Nitrate Urine Bilirubin Urine Urobilinogen Ur Leukocyte Esterase Salicylates < 1 L Urine Opiates Screen Urine Methadone Screen Acetaminophen < 10.0 L Ur Barbiturates Screen Ur Phencyclidine Scrn Ur Amphetamines Screen U Benzodiazepines Scrn U Oth Cocaine Metabols U Cannabinoids Screen Alcohol, Quantitative RPR Hepatitis A IgM Ab Hep Bs Antigen Hep B Core IgM Ab Hepatitis C Antibody HIV 1&2 Ag/Ab, 4th Gen 12/25/16 12/25/16 12/25/16 08:45 09:05 09:05 WBC RBC Hgb Hct MCV MCH MCHC RDW Plt Count MPV Gran % Lymph % (Auto) Carter % (Auto) Eos % (Auto) Baso % (Auto) Gran # Lymph # Carter # Eos # Baso # Sodium Potassium Chloride Carbon Dioxide Anion Gap BUN Creatinine Est GFR ( Amer) Est GFR (Non-Af Amer) Random Glucose Fasting Glucose Calcium Total Bilirubin AST ALT Alkaline Phosphatase Total Protein Albumin Globulin Albumin/Globulin Ratio Triglycerides Cholesterol LDL Cholesterol Direct HDL Cholesterol TSH 3rd Generation Urine Color Yellow Urine Appearance Clear Urine pH 7.0 Ur Specific [place] 1.020 Urine Protein Negative Urine Glucose (UA) Negative Urine Ketones Negative Urine Blood Negative Urine Nitrate Negative Urine Bilirubin Negative Urine Urobilinogen 0.2 Ur Leukocyte Esterase Negative Salicylates Urine Opiates Screen Positive H Urine Methadone Screen Positive H Acetaminophen Ur Barbiturates Screen Negative Ur Phencyclidine Scrn Negative Ur Amphetamines Screen Negative U Benzodiazepines Scrn Positive H U Oth Cocaine Metabols Positive H U Cannabinoids Screen Negative Alcohol, Quantitative < 10 RPR Hepatitis A IgM Ab Hep Bs Antigen Hep B Core IgM Ab Hepatitis C Antibody HIV 1&2 Ag/Ab, 4th Gen 12/26/16 12/26/16 12/26/16 07:00 07:00 07:00 WBC RBC Hgb Hct MCV MCH MCHC RDW Plt Count MPV Gran % Lymph % (Auto) Carter % (Auto) Eos % (Auto) Baso % (Auto) Gran # Lymph # Carter # Eos # Baso # Sodium Potassium Chloride Carbon Dioxide Anion Gap BUN Creatinine Est GFR ( Amer) Est GFR (Non-Af Amer) Random Glucose Fasting Glucose 94 Calcium Total Bilirubin AST ALT Alkaline Phosphatase Total Protein Albumin Globulin Albumin/Globulin Ratio Triglycerides 152 Cholesterol 155 LDL Cholesterol Direct 80 HDL Cholesterol 33 TSH 3rd Generation 2.6 Urine Color Urine Appearance Urine pH Ur Specific [place] Urine Protein Urine Glucose (UA) Urine Ketones Urine Blood Urine Nitrate Urine Bilirubin Urine Urobilinogen Ur Leukocyte Esterase Salicylates Urine Opiates Screen Urine Methadone Screen Acetaminophen Ur Barbiturates Screen Ur Phencyclidine Scrn Ur Amphetamines Screen U Benzodiazepines Scrn U Oth Cocaine Metabols U Cannabinoids Screen Alcohol, Quantitative RPR Nonreactive Hepatitis A IgM Ab Hep Bs Antigen Hep B Core IgM Ab Hepatitis C Antibody HIV 1&2 Ag/Ab, 4th Gen 12/27/16 12/27/16 12/27/16 07:40 07:40 11:30 WBC 6.2 RBC 5.38 Hgb 15.0 D Hct 42.0 MCV 78.1 L MCH 27.9 MCHC 35.7 RDW 15.8 H Plt Count 159 MPV 9.1 Gran % 64.8 Lymph % (Auto) 26.5 Carter % (Auto) 7.9 H Eos % (Auto) 0.3 L Baso % (Auto) 0.5 Gran # 4.03 Lymph # 1.7 Carter # 0.5 Eos # 0.0 Baso # 0.03 Sodium 142 Potassium 3.9 Chloride 102 Carbon Dioxide 28 Anion Gap 16 BUN 14 Creatinine 0.8 Est GFR ( Amer) > 60 Est GFR (Non-Af Amer) > 60 Random Glucose 126 H Fasting Glucose Calcium 9.6 Total Bilirubin 1.8 H AST 94 H D ALT 84 H Alkaline Phosphatase 105 Total Protein 8.0 Albumin 4.5 Globulin 3.4 Albumin/Globulin Ratio 1.3 Triglycerides Cholesterol LDL Cholesterol Direct HDL Cholesterol TSH 3rd Generation Urine Color Urine Appearance Urine pH Ur Specific [place] Urine Protein Urine Glucose (UA) Urine Ketones Urine Blood Urine Nitrate Urine Bilirubin Urine Urobilinogen Ur Leukocyte Esterase Salicylates Urine Opiates Screen Urine Methadone Screen Acetaminophen Ur Barbiturates Screen Ur Phencyclidine Scrn Ur Amphetamines Screen U Benzodiazepines Scrn U Oth Cocaine Metabols U Cannabinoids Screen Alcohol, Quantitative RPR Hepatitis A IgM Ab Negative Hep Bs Antigen Negative Hep B Core IgM Ab Negative Hepatitis C Antibody Negative HIV 1&2 Ag/Ab, 4th Gen 12/27/16 11:30 WBC RBC Hgb Hct MCV MCH MCHC RDW Plt Count MPV Gran % Lymph % (Auto) Carter % (Auto) Eos % (Auto) Baso % (Auto) Gran # Lymph # Carter # Eos # Baso # Sodium Potassium Chloride Carbon Dioxide Anion Gap BUN Creatinine Est GFR ( Amer) Est GFR (Non-Af Amer) Random Glucose Fasting Glucose Calcium Total Bilirubin AST ALT Alkaline Phosphatase Total Protein Albumin Globulin Albumin/Globulin Ratio Triglycerides Cholesterol LDL Cholesterol Direct HDL Cholesterol TSH 3rd Generation Urine Color Urine Appearance Urine pH Ur Specific [place] Urine Protein Urine Glucose (UA) Urine Ketones Urine Blood Urine Nitrate Urine Bilirubin Urine Urobilinogen Ur Leukocyte Esterase Salicylates Urine Opiates Screen Urine Methadone Screen Acetaminophen Ur Barbiturates Screen Ur Phencyclidine Scrn Ur Amphetamines Screen U Benzodiazepines Scrn U Oth Cocaine Metabols U Cannabinoids Screen Alcohol, Quantitative RPR Hepatitis A IgM Ab Hep Bs Antigen Hep B Core IgM Ab Hepatitis C Antibody HIV 1&2 Ag/Ab, 4th Gen Nonreactive Consultations:: List each consultation separately and include: 1. Reason for request. 2. Findings. 3. Follow-up Consultations: Seen by Dr. Cam on 12/27/[address] Mosquera on 12/28/16 Summary of Hospital Course include:: 1. Description of specific treatment plan utilized for patients during their course of treatmen. 2. Summarize the time- course for resolution of acute symptoms and/or regressed behaviors. 3. Describe issues identified and worked on during hospitalization. 4. Describe medication utilized. 5. Describe medical problems identified and treated. 6. Reassessment of suicide risk Summary of Hospital Course: INITIAL ASSESSMENT BY DR. TYLER Patient is a 41 year old Male with self reported h/o ADHD and ALEAH, h/ o polysubstance abuse and dependence, pt denied h/o being admitted to the psychiatric inpatient unit, denied previous suicidal attempts, currently lives with his girlfriend of 11years in [place], was brought to the [facility] s/p suicidal pact with his girlfriend, pt and his girlfriend were found unconscious in apartment with good by letters (pt's girlfriend wrote them), pt was under care of (local psychiatrist), considering the severeness of the pt's suicidal attempt, pt cannot be maintained as outpatient setting. Pt overdosed on 62mg of xanax, 50 bags of IV heroin, methadone, cocaine. pt was seen together wit GINNY Faustin in her office. pt presented to have some withdrawals from the opioids, pt said he has diarrhea, nausea, was offered Zofran. pt said that he feels better, denied thoughts of harming self or others , pt is unreliable historian. 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 as per sister "he will find any excuse to sign himself out", as per sister she will contact pt's girlfriend family and ask them to take pt's belongings and get back to the . pt still present to be depressed, flat affect, c/o opioid withdrawals, but VS are WNL, pt was advised to take meds as needed. PROGRESS NOTE ON 12/29/16 I reviewed assessment and recent notes which indicate that screener did not believe that patient met criteria for admission. Review of admission notes indicate that patient has actual intent to kill himself in a pact with girlfriend who is also hospitalized. This was confirmed by interview with patient at bedside. The couple have numerous stressors and patient indicates that he now feels that behavior prior to admission was "stupid and idiotic". Feels he is improving and reports hopefulness. He is calm during my interaction with him. However he can later be heard loudly swearing about the screeners evaluation at 1 am and my visit with him. Patient was cursing and calling us names when speaking with his roommate. Current hospitalization and my interaction with patient has been too brief and inconsistent to ensure patient is stable for discharge. Based on these findings , this provider respectfully requested a second screening opinion. SECOND SCREENER INTERVIEWED PATIENT AND FOUND PATIENT MET CRITERIA FOR INVOLUNTARY [place] [facility] [place] Final Diagnosis (DSM 5) Condition upon Discharge: GUARDED DSM 5: r/o MDD r/o substance induced mood disorder polysubstance abuse and dependence Disposition: Transfer [facility] Follow-up Treatment Plan: * c/w current tx and plan * Current hospitalization and my interaction with patient has been too brief and inconsistent to ensure patient is stable for discharge. Based on these findings, this provider respectfully requested a second screening opinion. * No new weekend labs thus far * Vitals reviewed and noted below: Selected Entries 12/28/16 12/28/16 06:42 16:02 Temperature 97.7 F Pulse Rate 78 81 Respiratory 20 Rate Blood Pressure 106/69 106/66
== END 2016-12-29 23:15 | DRG 745 ==
LOC: ED 08:29 → ERH 12-26 00:10 → PSYC 12-26 01:38
PROVIDERS: ADMIT Psychiatry & Neurology Psychiatry; ATTEND Psychiatry & Neurology Psychiatry
DX: F11.23 Opioid dependence with withdrawal (principal); F32.89 Other specified depressive episodes; F41.1 Generalized anxiety disorder; F17.210 Nicotine dependence, cigarettes, uncomplicated; F13.239 Sedative, hypnotic or anxiolytic dependence with withdrawal, unspecified; G47.00 Insomnia, unspecified; F90.9 Attention-deficit hyperactivity disorder, unspecified type; T40.1X2A Poisoning by heroin, intentional self-harm, initial encounter; T42.4X2A Poisoning by benzodiazepines, intentional self-harm, initial encounter; Z79.899 Other long term (current) drug therapy; Z83.3 Family history of diabetes mellitus